=== PATIENT | female | born 1965 | race Caucasian/White ===

== ENCOUNTER 2022-01-25 23:58 | Inpatient (IN) | payer OTHER ==
[~2022-01-25] VITALS: Ht 165.1 cm; Wt 116.1 kg
--- NOTE | 2022-01-26 00:12 | NUR ---
Dr. Guzman at triage to exam patient.
[2022-01-26] MEDS ORDERED: ONDANSETRON 4 MG TAB PO ONE (00:25)
[2022-01-26 00:48] VITALS: BP 157/77
--- NOTE | 2022-01-26 02:17 | NUR ---
BS TAKEN 135, AWARE
[2022-01-26] MEDS ORDERED: METO-485 PO (02:27)
--- NOTE | 2022-01-26 02:44 | NUR ---
Patient had abdominal pain, refused to D/C, Dr. Guzman notified.
--- NOTE | 2022-01-26 02:49 | NUR ---
PATIENT TAKEN TO CT
[2022-01-26] MEDS ORDERED: MORPHINE SULFATE 4 MG/ML SYR IVP ONE (04:30)
--- NOTE | 2022-01-26 04:38 | NUR ---
Patient ambulated to bed 12.
[2022-01-26] MEDS ORDERED: NACL 0.9% 1,000 ML IV ONE (04:45)
[2022-01-26] MEDS ORDERED: PIPERACILLIN/TAZOBACTAM 3.375 GM in DEXTROSE 5% 50 ML IV ONE (04:45)
--- NOTE | 2022-01-26 04:55 | NUR ---
Blood for labwork drawn from right arm per weatherization and housing inspector. Patient tolerated well.
--- NOTE | 2022-01-26 05:04 | NUR ---
COVID-19 swabs collected and sent to lab.
[2022-01-26 05:09] LABS: BASOPHILS # (AUTO) 0.1 K/uL (0.00-0.22); BASOPHILS % (AUTO) 0.6 % (0.0-2.0); EOSINOPHILS % (AUTO) 0.1 % (0.0-4.0); HEMATOCRIT 31.2 % (36-48); HEMOGLOBIN 9.3 g/dL (12.0-16.0); LYMPHOCYTES # (AUTO) 1.5 K/uL (2.5-16.5); LYMPHOCYTES % (AUTO) 15.1 % (20.5-51.1); MEAN CORPUSCULAR HEMOGLOBIN 19 pg (27-31); MEAN CORPUSCULAR HGB CONC 30 g/dL (33-37); MEAN CORPUSCULAR VOLUME 62.8 fL (80-94); MONOCYTES # (AUTO) 0.2 K/uL (0.8-1.0); MONOCYTES % (AUTO) 2.5 % (1.7-9.3); NEUTROPHILS # (AUTO) 7.9 K/uL (1.8-7.7); NEUTROPHILS % (AUTO) 81.7 % (42.2-75.2); PLATELET COUNT (AUTO) 380 K/uL (140-450); RED BLOOD CELL COUNT(AUTO) 4.98 MIL/uL (4.20-5.40); RED CELL DISTRIBUTION WIDTH 21.1 % (11.6-13.7); WHITE BLOOD COUNT (AUTO) 9.7 K/uL (4.8-10.8)
--- NOTE | 2022-01-26 05:14 | NUR ---
Dr. Guzman at bedside and spoke with her family for treatment plans.
[2022-01-26] MEDS ORDERED: PIPERACILLIN/TAZOBACTAM 3.375 GM VIAL IV ONE (05:37)
[2022-01-26 05:54] LABS: ALBUMIN 3.4 g/dL (3.4-5.0); ANION GAP 15.3 (8-16); CARBON DIOXIDE 24.5 mmol/L (21-32); CREATININE 0.7 mg/dL (0.6-1.3); POTASSIUM 3.8 mmol/L (3.5-5.1); TOTAL BILIRUBIN 0.3 mg/dL (0.0-1.0)
--- NOTE | 2022-01-26 07:25 | NUR ---
report received from DEVORA Salas for transfer of care
--- NOTE | 2022-01-26 07:34 | NUR ---
Patient appears to be resting comfortably in bed. Vital Signs within normal limits. Respirations even and unlabored. PT PLACED IN GOWN AND PLACED ON BEDSIDE WATER SUPPLY ENGINEER. PT DENIES ANY PAIN
[2022-01-26] MEDS ORDERED: MAGNESIUM OXIDE 400 MG TAB PO PRN (08:35)
[2022-01-26] MEDS: NACL 0.9% 1,000 ML IV SCH ×2 (08:35→10:30)
[2022-01-26] MEDS ORDERED: ONDANSETRON 4 MG/2 ML VIAL IVP PRN (08:35)
[2022-01-26] MEDS ORDERED: ACETAMINOPHEN 325 MG TAB PO PRN (08:35)
[2022-01-26] MEDS ORDERED: MORPHINE SULFATE 4 MG/ML SYR IVP PRN (08:35)
[2022-01-26] MEDS ORDERED: bisacodyL 10 MG SUPP RC ONE (08:40)
[2022-01-26] MEDS ORDERED: DOCUSATE SOD/SENNA 50/8.6 MG 1 TAB PO PRN (08:40)
[2022-01-26] MEDS ORDERED: cefTRIAXone 1,000 MG VIAL ONE ×2 (08:43→08:45)
[2022-01-26] MEDS: ENOXAPARIN 40 MG/0.4 ML SYR SUBQ SCH (09:18)
--- NOTE | 2022-01-26 09:35 | NUR ---
RECEIVED REPORT FROM ER NURSE LUIS FERNANDO VIA PHONE CALL FOR CONTINUITY OF CARE.
--- NOTE | 2022-01-26 09:54 | NUR ---
Patient will be admitted to care of DR. WOLFF. Admited to MED-SURG. Will go to room 110A. Belongings list completed. Report to DEVORA SAENZ.
--- NOTE | 2022-01-26 09:55 | NUR ---
ER NURSE WHEELED PT TO UNIT. PT INDEPENDENTLY TRANSFERRED FROM WHEEL CHAIR TO BED. NO SIGNS OF DISTRESS NOTED. RESPIRATIONS EVEN AND UNLABORED ON ROOM AIR. A&O4. V/S STABLE COMPLAINT OF PAIN ON HER ABDOMEN 06/09. SKIN IS INTACT, WARM AND DRY TO TOUCH. IV ON RFA G22 RUNNING ROCEPHIN AT 100 ML/HR AT THIS TIME. PT RESTING IN BED. CALL LIGHT WITHIN REACH. SAFETY MEASURES IN PLACE. WILL CONTINUE TO MONITOR.
[2022-01-26] MEDS: HYDROcodone/APAP 5/325 MG 1 TAB TAB PO PRN ×2 (11:52→18:42)
--- NOTE | 2022-01-26 11:52 | NUR ---
PT COMPLAINT OF PAIN 03/09. PRN PAIN MEDS ADMINISTERED ORDERED.
[2022-01-26 12:16] VITALS: BP 110/71
--- NOTE | 2022-01-26 12:32 | NUR ---
DC PLANNING PATIENT IS A 56 YR OLD FEMALE WHO PRESENTED TO [facility]/ED ON 01/26/22 FOR ABDOMINAL PAIN. SW ATTEMPTED TO MEET WITH PATIENT AT BEDSIDE FOR THE PURPOSE OF DISCUSSING AND GATHERING COLLATERAL INFORMATION. PATIENT REQUESTED THAT I SPEAK WITH DAUGHTER, MARGARET. PATIENT PROVIDED SW WITH PHONE NUMBER [phone]. SW OUTREACHED TO PATIENTS DAUGHTER MARGARET WHO REPORTED THAT PATIENT RESIDES WITH HER SPOUSE AND DAUGHTER AT THE ADDRESS LISTED. MARGARET REPORTED PATIENTS SPOUSE, MCKAYLA KIDD, EMERGENCY CONTACT AND MEDICAL DECISION MAKER. SW INQUIRED ON A.D, MARGARET REPORTED THAT PATIENT DOES NOT HAVE AN AD IN PLACE. SW PROVIDED MARGARET WITH INFORMTION ON A.D., MARGARET WAS RECEPTIVE AND REQUESTED A.D PACKET BE LEFT AT PATIENTS BEDSIDE. MARGARET REPORTS THAT PATIENT IS INCONSISTENT WITH MEETING WITH PCP DR. CABRAL ([phone]) AND WAS UNABLE TO RECALL PATIENTS LAST VISIT. SW SPOKE TO MARGARET ON THE IMPORTANCE OF FOLLOW UP CARE ONCE DC. PATIENT WAS RECEPTIVE AND PROVIDED SW WITH PERMISSION TO MAKE FOLLOW UP APPT. MARGARET REPORTED THAT SHE WOULD ENSURE PATIENT FOLLOWS UP. MARGARET DENIED BARRIERS IN SEEKING MEDICATIONS AND REPORTS RECEIVING MEDICATIONS FROM [facility] [place], WHEN NEEDED. MARGARET REPORTS PATIENT IS PRIMARILY INDEPENDENT AND DOES NOT REQUIRE DAILY DME ASSISTANCE, HOWEVER, REPORTS THAT PATIENT WILL UTILIZE A WHEELCHAIR, WHEN NOT FEELING WELL. MARGARET REPORTS ADEQUATE FRIEND AND FAMILY SUPPORT AND REPORTS THAT SHE WILL BE PICKING PATIENT UP FROM HOSPITAL AND AIDING IN HER CARE, IF REQUIRED. SW INQUIRED ON ANY ADDITIONAL RESOURCES NEEDED. BORIS DECLINED AT THIS TIME.
[2022-01-26] MEDS: metroNIDAZOLE 500 MG/NS PREMIX 100 ML IV SCH ×2 (13:00→21:00)
--- NOTE | 2022-01-26 13:00 | NUR ---
RN ADMINISTERED FLAGYL ORDERED.
--- NOTE | 2022-01-26 14:52 | NUR ---
PATIENT HAS BEEN SCREENED AND CATEGORIZED HIGH NUTRITION RISK. PATIENT WILL BE SEEN WITHIN 1-2 DAYS OF ADMISSION. JAZMINE GAMEZ RD
--- NOTE | 2022-01-26 14:56 | NUR ---
PT IN BED, RESTING. BREATHING EVEN AND UNLABORED. INFORMED PT ABOUT STOOL COLLECTION ORDERED. PT VERBALIZED UNDERSTANDING. SAFETY MEASURES IN PLACE. CALL LIGHT WITHIN REACH.
--- NOTE | 2022-01-26 15:00 | NUR ---
DR MISHRA AT BEDSIDE WITH NURSE. EXPLAINED ABOUT COLONOSCOPY PROCEDURE TO BE DONE TOMORROW AND BOWEL PREPARATION NEEDED FOR THE PROCEDURE. VERBALIZED UNDERSTANDING AND CONSENT OBTAINED BY THE
[2022-01-26] MEDS: SUPREP BOWEL PREP KIT 354 ML SOLN.RECON PO SCH ×2 (15:57→21:00)
[2022-01-26] MEDS: bisacodyL 5 MG TABEC PO SCH ×2 (15:57→21:00)
[2022-01-26 16:00] VITALS: BP 120/68
--- NOTE | 2022-01-26 17:30 | NUR ---
PT ON BED, RESTING. BREATHING EVEN AND UNLABORED. NO SIGNS OF DISTRESS NOTED. DENIES PAIN AT THIS TIME. CALL LIGHT WITHIN REACH. SAFETY MEASURES IN PLACE.
--- NOTE | 2022-01-26 18:42 | NUR ---
PT COMPLAINT OF DE JESUS AND ABD PAIN 03/09. MEDICATED ORDERED.
[2022-01-26 20:00] VITALS: BP 112/62
[2022-01-26] MEDS ORDERED: SODIUM PHOSPHATE 118 ML ENEM RC SCH (22:00)
[2022-01-27] VITALS: BP 114/64
--- NOTE | 2022-01-27 00:15 | NUR ---
PATIENT AWAKE ALERT BERMUDIAN SPEAKING ONLY ON CLEAR LIQ. DIET TIL MID NITE THEN NPO FOR COLONOSCOPY IN A.M.PATIENT HAS DULCOLAX 3 TABS,BOWEL PREP, FLEETS ENEMA. NO C/O PATIENT HAS NS 80 HOUR. NPO POST MID NITE. TEMP 97.1
[2022-01-27] MEDS: NACL 0.9% 1,000 ML IV SCH ×2 (02:00→10:15)
[2022-01-27 04:00] VITALS: BP 116/64
[2022-01-27 04:13] LABS: PROTHROMBIN TIME 10.3 secs (10.8-13.4)
[2022-01-27] MEDS: metroNIDAZOLE 500 MG/NS PREMIX 100 ML IV SCH ×3 (05:40→21:00)
--- NOTE | 2022-01-27 05:59 | NUR ---
PT IS NOT CLEAR FOR COLONOSCOPY.CALLED DR MISHRA AND INFORM HIM.
--- NOTE | 2022-01-27 06:43 | NUR ---
CALLED AGAIN AND LEFT MESSAGE WITH CALL BACK NUMBER.
[2022-01-27 06:46] LABS: BASOPHILS % (AUTO) 0.5 % (0.0-2.0); EOSINOPHILS # (AUTO) 0.1 K/uL (0-0.4); HEMATOCRIT 29.3 % (36-48); HEMOGLOBIN 8.7 g/dL (12.0-16.0); LYMPHOCYTES # (AUTO) 2.6 K/uL (2.5-16.5); LYMPHOCYTES % (AUTO) 30.2 % (20.5-51.1); MEAN CORPUSCULAR HEMOGLOBIN 19 pg (27-31); MEAN CORPUSCULAR HGB CONC 30 g/dL (33-37); MEAN CORPUSCULAR VOLUME 63.2 fL (80-94); MONOCYTES # (AUTO) 0.6 K/uL (0.8-1.0); MONOCYTES % (AUTO) 6.9 % (1.7-9.3); NEUTROPHILS # (AUTO) 5.2 K/uL (1.8-7.7); NEUTROPHILS % (AUTO) 61.4 % (42.2-75.2); PLATELET COUNT (AUTO) 370 K/uL (140-450); RED BLOOD CELL COUNT(AUTO) 4.63 MIL/uL (4.20-5.40); RED CELL DISTRIBUTION WIDTH 20.8 % (11.6-13.7); WHITE BLOOD COUNT (AUTO) 8.5 K/uL (4.8-10.8)
[2022-01-27 06:53] LABS: ALBUMIN 3.1 g/dL (3.4-5.0); ANION GAP 10.6 (8-16); CARBON DIOXIDE 27.7 mmol/L (21-32); CREATININE 0.8 mg/dL (0.6-1.3); POTASSIUM 3.3 mmol/L (3.5-5.1); TOTAL BILIRUBIN 0.3 mg/dL (0.0-1.0)
--- NOTE | 2022-01-27 07:25 | NUR ---
RECEIVED REPORT FROM WELL LOGGING CAPTAIN MUD ANALYSIS NURSE FOR CONTINUITY OF CARE. PT ASLEEP IN BED. BREATHING SYMMETRICAL ON ROOM AIR. WITH RFA 20G NS AT 80CC/HR. FLACC O. CALL LIGHT WITHIN REACH. ALL SAFETY MEASURES IN PLACE. PER REPORT DR REYEZ WAS PAGED, PT NOT CLEARED FOR COLONOSCOPY AT THIS TIME, AWAITING RESPONSE FROM .
[2022-01-27 08:00] VITALS: BP 134/53
[2022-01-27] MEDS: ENOXAPARIN 40 MG/0.4 ML SYR SUBQ SCH (08:42)
--- NOTE | 2022-01-27 08:42 | NUR ---
SCHEDULED ROCEPHIN GIVEN ORDERED. LOVENOX NOT GIVEN, PT FOR COLONOSCOPY TODAY
--- NOTE | 2022-01-27 09:20 | NUR ---
PT TAKEN TO OR, IN STABLE CONDITION
[2022-01-27] MEDS: MIDAZOLAM 2 MG/2 ML VIAL IVP ONE ×2 (09:33→10:16)
[2022-01-27] MEDS: fentaNYL citrate 0.05 MG/ML VIAL IVP ONE ×2 (09:34→10:16)
[2022-01-27] MEDS ORDERED: fentaNYL citrate 0.05 MG/ML VIAL ONE (09:36)
[2022-01-27] MEDS ORDERED: diphenhydrAMINE 50 MG/ML VIAL ONE (09:36)
[2022-01-27] MEDS ORDERED: MIDAZOLAM 5 MG/5 ML VIAL ONE (09:36)
--- NOTE | 2022-01-27 10:11 | NUR ---
(01/27/22) RD INITIAL ASSESSMENT COMPLETED PLEASE REFER TO NUTRITION ASSESSMENT UNDER CARE ACTIVITY FOR ESTIMATED NUTRITIONAL NEEDS. RD RECOMMENDATIONS: 1. CONTINUE NPO MEDICALLY APPROPRIATE. 2. IF/WHEN MEDICALLY APPROPRIATE, CONSIDER INITIATING CLEAR LIQUID, ADVANCING TO FULL LIQUID, AND THEN REGULAR DIET TOLERATED. 3. CONSULT RDN PRN. 4. RD WILL F/U 2-3 DAYS; HIGH RISK. MITCHELL ALLEN, , RDN
--- NOTE | 2022-01-27 10:14 | NUR ---
PT BACK FROM OR S/P COLONOSCOPY, IN STABLE CONDITION. AWAKE, ALERT. BREATHING SYMMETRICAL ON ROOM AIR. [id number] RR16 TEMP98.1 O2 SAT ON ROOM AIR 94%
--- NOTE | 2022-01-27 10:20 | NUR ---
URINE SPECIMEN COLLECTED AND SENT TO LAB
[2022-01-27 10:28] LABS: APPEARANCE,URINE CLEAR (CLEAR); BILIRUBIN,URINE 1+ (NEGATIVE); BLOOD, URINE NEGATIVE (NEGATIVE); COLOR,URINE YELLOW (YELLOW); LEUKOCYTE ESTERASE ,URINE TRACE (NEGATIVE); NITRITE, URINE NEGATIVE (NEGATIVE); PH,URINE 5.5 (5.0-9.0); UGLUCOSE NEGATIVE (NEGATIVE)
[2022-01-27 10:52] LABS: CALCIUM OXALATE CRYSTALS,UR None Seen /HPF (None Seen); COARSE GRANULAR CASTS,URINE None Seen /LPF (None Seen); FINE GRANULAR CASTS,URINE None Seen /LPF (None Seen); HYALINE CASTS, URINE None Seen /LPF (None Seen); OTHER CASTS, URINE None Seen /LPF (None Seen); OTHER CRYSTALS,URINE None Seen /HPF (None Seen); RBC,URINE NONE SEEN /HPF (0-5); RED BLOOD CELL CASTS,URINE None Seen /LPF (None Seen); TRICHOMONAS,URINE None Seen /HPF (None Seen); TRIPLE PHOSPHATE CRYSTAL,UR None Seen /HPF (None Seen); URIC ACID CRYSTALS,URINE None Seen /HPF (None Seen); URINE AMORPHOUS URATE None Seen /HPF (None Seen); WAXY CASTS,URINE None Seen /LPF (None Seen); WBC,URINE 0-5 /HPF (0-5); YEAST,URINE None Seen /HPF (None Seen)
[2022-01-27] MEDS: POTASSIUM CHLORIDE 10 MEQ TABER PO PRN (12:26)
--- NOTE | 2022-01-27 12:31 | NUR ---
PT AWAKE/ALERT IN BED, DAUGHTER AT BEDSIDE VISITING. BREATHING SYMMETRICAL ON ROOM AIR. NO C/O NAUSEA/VOMITING AT THIS TIME. ON CLEAR LIQUID DIET AND TOLERATING WELL AT THIS TIME. PRN K LEVEL GIVEN FOR K LEVEL 3.3 CALL LIGHT WITHIN REACH. ALL SAFETY MEASURES IN PLACE.
[2022-01-27 16:00] VITALS: BP 113/64
--- NOTE | 2022-01-27 16:30 | NUR ---
PT AWAKE IN BED. BREATHING SYMMETRICAL ON ROOM AIR. DAUGHTER AT BEDSIDE, NO C/O PAIN AT THIS TIME.
--- NOTE | 2022-01-27 17:57 | NUR ---
DR TERAN MADE AWARE OF CONSULT
--- NOTE | 2022-01-27 19:29 | NUR ---
ENDORSED PT TO BEAD FILLER NURSE, IN STABLE CONDITION
--- NOTE | 2022-01-27 22:43 | NUR ---
PATIENT AWAKE ALERT NO C/O OF DISCOMFORT PATIENT IS A MED/SURG PATIENT HAS NS INFUSING AT 80 HOUR LUNG CLEAR TEMP 98.3 SAT 98%, NO SIGNS OF DISTRESS.
[2022-01-28] VITALS: BP 128/69
[2022-01-28] MEDS: metroNIDAZOLE 500 MG/NS PREMIX 100 ML IV SCH ×3 (04:55→20:17)
[2022-01-28 07:26] LABS: BASOPHILS % (AUTO) 0.7 % (0.0-2.0); EOSINOPHILS # (AUTO) 0.1 K/uL (0-0.4); EOSINOPHILS % (AUTO) 1.1 % (0.0-4.0); HEMATOCRIT 24.9 % (36-48); HEMOGLOBIN 7.5 g/dL (12.0-16.0); LYMPHOCYTES # (AUTO) 2.9 K/uL (2.5-16.5); LYMPHOCYTES % (AUTO) 49.1 % (20.5-51.1); MEAN CORPUSCULAR HEMOGLOBIN 19 pg (27-31); MEAN CORPUSCULAR HGB CONC 30 g/dL (33-37); MEAN CORPUSCULAR VOLUME 63.6 fL (80-94); MONOCYTES # (AUTO) 0.5 K/uL (0.8-1.0); MONOCYTES % (AUTO) 8.1 % (1.7-9.3); NEUTROPHILS # (AUTO) 2.5 K/uL (1.8-7.7); PLATELET COUNT (AUTO) 313 K/uL (140-450); RED BLOOD CELL COUNT(AUTO) 3.91 MIL/uL (4.20-5.40)
--- NOTE | 2022-01-28 07:30 | NUR ---
RECEIVED REPORT FROM RECYCLABLE MATERIALS DISTRIBUTOR NURSE FOR CONTINUITY OF CARE. PT AWAKE IN BED, ALERT. BREATHING SYMMETRICAL ON ROOM AIR. NO C/O PAIN AT THIS TIME. RFA 22G WITH NS AT 80CC/HR. CALL LIGHT WITHIN REACH. ALL SAFETY MEASURES IN PLACE. DR TERAN (SURGEON) AT BEDSIDE TALKING TO PT REGARDING COLONIC MASS, POSSIBLE SURGERY.
[2022-01-28 07:33] LABS: ALBUMIN 2.6 g/dL (3.4-5.0); ANION GAP 11.2 (8-16); CARBON DIOXIDE 25.3 mmol/L (21-32); CREATININE 0.8 mg/dL (0.6-1.3); POTASSIUM 3.5 mmol/L (3.5-5.1); TOTAL BILIRUBIN 0.2 mg/dL (0.0-1.0)
[2022-01-28] MEDS: DEXT 5% / NACL 0.45% 1,000 ML IV SCH ×2 (07:55→21:15)
--- NOTE | 2022-01-28 07:55 | NUR ---
DR TERAN DISCUSSED WITH PT REGARDING SURGERY. PT AGREED AND CONSENTED TO SURGERY (LAPAROSCOPIC PARTIAL COLECTOMY POSSIBLE OPEN) PT AND DR TERAN SIGNED CONSENT FOR SURGERY. WITH NEW ORDERS MADE, ALSO ORDERED TO D/C NS AT 80CC, START D51/2NS AT 75CC/HR.
[2022-01-28 08:00] VITALS: BP 143/53
--- NOTE | 2022-01-28 08:15 | NUR ---
SCHEDULED AM MEDICATIONS GIVEN ORDERED. DENIES PAIN AT THIS TIME. PT SEEN BY DR WOLFF
[2022-01-28] MEDS: ENOXAPARIN 40 MG/0.4 ML SYR SUBQ SCH (08:28)
--- NOTE | 2022-01-28 12:04 | NUR ---
PT AWAKE IN BED. BREATHING SYMMETRICAL ON ROOM AIR. ABLE TO AMBULATE WITH STEADY GAIT. DAUGHTER AT BEDSIDE VISITING. DENIES PAIN AT THIS TIME. CALL LIGHT WITHIN REACH.
--- NOTE | 2022-01-28 13:30 | NUR ---
RECEIVED CALL FROM LAB, 2 UNITS PRBC READY AND ON HOLD FOR SURGERY.
--- NOTE | 2022-01-28 14:21 | NUR ---
PT IN BED AWAKE, ALERT, URDU SPEAKING. BREATHING SYMMETRICAL ON ROOM AIR. PT'S SON AT BEDSIDE VISITING. PT DENIES PAIN, NO NAUSEA/VOMITING NOTED. ENCOURAGED TO USE CALL LIGHT WHEN ASSISTANCE IS NEEDED.
[2022-01-28 16:00] VITALS: BP 132/70
--- NOTE | 2022-01-28 17:15 | NUR ---
AT BEDSIDE VISITING PT, PT STATES SHE'S FINE, DENIES PAIN. ENCOURAGED TO CALL FOR ASSISTANCE. BREATHING SYMMETRICAL ON ROOM AIR. REMINDED PT OF NPO EXCEPT MEDS STATUS FOR TOMORROW.
--- NOTE | 2022-01-28 19:19 | NUR ---
ENDORSED PT TO PATIENT SERVICES REPRESENTATIVE NURSE, IN STABLE CONDITION.
--- NOTE | 2022-01-28 19:30 | NUR ---
RECEIVED BEDSIDE REPORT FROM DAY SHIFT RN FOR CONTINUITY OF CARE. PT IS WAKE IN BED ON RA. PT IS NOT IN ANY ACUTE DISTRESS. BREATHING EVEN AND UNLABORED. IVF RUNNING PER MD ORDER. CALL LIGHT WITHIN REACH. ALL SAFETY MEASURES TAKEN. WILL CONTINUE TO MONITOR THE PT.
[2022-01-28 20:00] VITALS: BP 132/73
--- NOTE | 2022-01-28 20:15 | NUR ---
ALL DUE MEDS GIVEN. NO ADVERSE REACTION NOTED. WILL CONTINUE TO MONITOR THE PT.
[2022-01-29] MEDS: DEXT 5% / NACL 0.45% 1,000 ML IV SCH ×2 (01:15→21:05)
--- NOTE | 2022-01-29 01:23 | NUR ---
PT IS SLEEPING IN BED COMFORTABLY. PT IS NOT IN ANY ACUTE DISTRESS. BREATHING EVEN AND UNLABORED. IVF RUNNING PER MD ORDER. CALL LIGHT WITHIN REACH. ALL SAFETY MEASURES TAKEN. WILL CONTINUE TO MONITOR THE PT.
[2022-01-29 04:00] VITALS: BP 107/48
[2022-01-29] MEDS: metroNIDAZOLE 500 MG/NS PREMIX 100 ML IV SCH ×3 (05:04→21:20)
--- NOTE | 2022-01-29 05:10 | NUR ---
ALL DUE MEDS GIVEN. NO ADVERSE REACTION NOTED. WILL CONTINUE TO MONITOR THE PT.
[2022-01-29 06:34] LABS: BASOPHILS # (AUTO) 0.1 K/uL (0.00-0.22); EOSINOPHILS # (AUTO) 0.1 K/uL (0-0.4); EOSINOPHILS % (AUTO) 1.3 % (0.0-4.0); HEMATOCRIT 25.6 % (36-48); HEMOGLOBIN 7.7 g/dL (12.0-16.0); LYMPHOCYTES % (AUTO) 44.3 % (20.5-51.1); MEAN CORPUSCULAR HEMOGLOBIN 19 pg (27-31); MEAN CORPUSCULAR HGB CONC 30 g/dL (33-37); MEAN CORPUSCULAR VOLUME 63.2 fL (80-94); MONOCYTES # (AUTO) 0.7 K/uL (0.8-1.0); MONOCYTES % (AUTO) 10.5 % (1.7-9.3); NEUTROPHILS # (AUTO) 2.9 K/uL (1.8-7.7); NEUTROPHILS % (AUTO) 42.9 % (42.2-75.2); PLATELET COUNT (AUTO) 316 K/uL (140-450); RED BLOOD CELL COUNT(AUTO) 4.05 MIL/uL (4.20-5.40); RED CELL DISTRIBUTION WIDTH 20.7 % (11.6-13.7); WHITE BLOOD COUNT (AUTO) 6.8 K/uL (4.8-10.8)
[2022-01-29 06:50] LABS: ALBUMIN 2.7 g/dL (3.4-5.0); CARBON DIOXIDE 24.2 mmol/L (21-32); CREATININE 0.7 mg/dL (0.6-1.3); POTASSIUM 3.2 mmol/L (3.5-5.1); TOTAL BILIRUBIN 0.2 mg/dL (0.0-1.0)
--- NOTE | 2022-01-29 07:46 | NUR ---
ENDORSED PT TO DAY SHIFT RN FOR CONTINUITY OF CARE. ALL NEEDS MET. PT IS STABLE.
[2022-01-29 08:00] VITALS: BP 123/62
--- NOTE | 2022-01-29 08:53 | NUR ---
PATIENT TO OR IN STABLE CONDITION AND REPORT GIVEN TO CELENA LOZOYA. ROCEPHIN GIVEN PRE OP MEDS OF PATIENT TO CELENA,
[2022-01-29] MEDS ORDERED: HYDROmorphone PFS 2 MG/ML SYR ONE (09:12)
[2022-01-29] MEDS ORDERED: MIDAZOLAM 2 MG/2 ML VIAL ONE (09:12)
[2022-01-29] MEDS ORDERED: METOCLOPRAMIDE 10 MG/2 ML INJ VIAL ONE (09:27)
[2022-01-29] MEDS ORDERED: ONDANSETRON 4 MG/2 ML VIAL ONE (09:27)
[2022-01-29] MEDS ORDERED: PROPOFOL 200 MG/20 ML VIAL IV ONE (09:27)
[2022-01-29] MEDS ORDERED: DEXAMETHASONE 4 MG/ML VIAL ONE (09:28)
[2022-01-29] MEDS ORDERED: GLYCOPYRROLATE 0.2 MG/ML VIAL ONE ×2 (09:29)
[2022-01-29] MEDS ORDERED: NEOSTIGMINE 1:1000 10 MG/10 ML VIAL ONE (09:29)
[2022-01-29] MEDS ORDERED: ROCURONIUM 50 MG/5 ML VIAL IV ONE (09:33)
[2022-01-29] MEDS ORDERED: SEVOFLURANE 250 ML BTL INH ONE (09:52)
[2022-01-29] MEDS ORDERED: ePHEDrine 50 MG/ML VIAL ONE (09:52)
[2022-01-29] MEDS ORDERED: BUPIVACAINE-MPF 0.25% 30 ML VIAL INJ ONE (10:05)
[2022-01-29] MEDS ORDERED: LIDOCAINE/EPI MPF 1%1:200000 30 ML VIAL INJ ONE (10:05)
[2022-01-29] MEDS ORDERED: HYDROmorphone 1 MG/ML AMP IVP PRN ×2 (13:15)
[2022-01-29] MEDS ORDERED: ONDANSETRON 4 MG/2 ML VIAL IVP PRN (13:15)
[2022-01-29] MEDS ORDERED: MEPERIDINE 25 MG/ML SYR IVP PRN (13:15)
[2022-01-29] MEDS ORDERED: LACTATED RINGERS 1,000 ML IV SCH (13:15)
--- NOTE | 2022-01-29 13:48 | NUR ---
DC PLANNING: THE PATIENT PRESENTED TO THE ED WITH C/O RLQ ABDOMINAL PAIN X 1 WEEK. W/U IN ED INCLUDED CT OF ABDOMEN WHICH SHOWED COLITIS, CONSTIPATION AND POSSIBLE OBSTRUCTION/SBO. PATIENT HAD A COLONOSCOPY WTIH BX AND SNARE POLYPECTOMY ON 01/28, GI MD RECOMMENDED A SURGICAL CONSULT BASED ON FINDINGS OF OF CIRCUMFERENTIAL FUNGATING ULCERATIVE OBSTRUCTIVE MASS IN THE PROXIMAL ASCENDING COLON. PATIENT TO OR TODAY FOR COLECTOMY, LAP VS OPEN. DC PLAN DEPENDS ON PATIENT RESPONSE TO SURGERY AND NEEDS, PER SS NOTES PATIENT LIVES WITH HER SPOUSE AND HAS ADDITIONAL SUPPORT FROM HER DAUGHTER SELVIN. CM WILL FOLLOW. Addendum: 01/30/22 at 1234 by Kira Castillo CM DC PLANNING: CM SPOKE WITH THE PATIENT AND HER AT BEDSIDE AND CONFIRMED THE ADDRESS AND PHONE NUMBER. THE PATIENT LIVES IN A SINGLE STORY HOUSE WITH HER DAUGHTER AND IS INDEPENDENT IN ALL ACTIVITIES. SHE HAS A WC WHICH SHE DOESN'T USE AND HAS NO OTHER DME OR H/O HOME HEALTH. SHE HAS A PCP IN [place] THAT SHE SEES REGULARLY BUT COULD NOT REMEMBER THEIR NAME. HER IS ABLE TO GIVE HER A RIDE HOME WHEN SHE'S STABLE FOR DISCHARGE, NO DC NEEDS IDENTIFIED. CM WILL FOLLOW. Addendum: 02/02/22 at 0926 by Kira Castillo CM DC PLANNING: ORDER FOR HOME HEALTH FOR NURSING OVERSIGHT POST DISCHARGE, ORDER AND CLINICAL PACKET FAXED TO [facility], ALSO SPOKE WITH NAZARIO AT [facility] TO MAKE HER AWARE. CAROL WILL REFER PATIENT TO A CONTRACTED HOME HEALTH AGENCY DIRECTED BY [facility]. CM WILL FOLLOW. Addendum: 02/02/22 at 1223 by Kira Castillo CM DC PLANNING: THE PATIENT IS ACCEPTED ON SERVICE WITH [facility], PHONE NUMBER [phone], START OF CARE TOMORROW WITH AN EVALUATION BY AN RN. CM WILL FOLLOW.
[2022-01-29 14:30] VITALS: BP 116/60
[2022-01-29 14:45] VITALS: BP 119/61
[2022-01-29 15:00] VITALS: BP 118/65
--- NOTE | 2022-01-29 15:02 | NUR ---
1430 patient back from surgery per bed with midline incion and 3 lap site inct with dressing and hermelindo bulb compressed and draining serosanguinous drainage. kept comfortable in bed.iv infusing well and intact.
[2022-01-29] MEDS: ACETAMINOPHEN EXTRA STRENGTH 500 MG TAB PO SCH ×2 (16:20→21:48)
[2022-01-29] MEDS: GABAPENTIN 300 MG CAP PO SCH (16:20)
--- NOTE | 2022-01-29 19:06 | NUR ---
1900 INSTRUCTED INCENTIVE SPIROMETER TO PATIENT. PATIENTS FAMILY MEMBER AT BEDSIDE. FAMILY MEMBER EXPLAINED TO PATIENT IN OCCITAN HOW TO USE INCENTIVE SPIROMETER. FAMILY DID 2000CC X 10 BREATHS. PATIENT DID WELL.
[2022-01-29 20:00] VITALS: BP 108/48
[2022-01-29] MEDS: KETOROLAC 15 MG/ML VIAL IVP SCH (21:47)
[2022-01-30] VITALS: BP 109/50
[2022-01-30 04:00] VITALS: BP_SYST 109; BP_SYST 52; BP_DIAS 50
[2022-01-30] MEDS: HYDROcodone/APAP 5/325 MG 1 TAB TAB PO PRN (04:40)
[2022-01-30] MEDS: metroNIDAZOLE 500 MG/NS PREMIX 100 ML IV SCH ×3 (05:53→21:40)
[2022-01-30] MEDS: KETOROLAC 15 MG/ML VIAL IVP SCH ×3 (05:54→21:43)
[2022-01-30 06:52] LABS: ALBUMIN 2.5 g/dL (3.4-5.0); ANION GAP 10.6 (8-16); CARBON DIOXIDE 26.5 mmol/L (21-32); CREATININE 0.8 mg/dL (0.6-1.3); POTASSIUM 3.1 mmol/L (3.5-5.1); TOTAL BILIRUBIN 0.3 mg/dL (0.0-1.0)
[2022-01-30 06:54] LABS: BASOPHILS % (AUTO) 0.5 % (0.0-2.0); EOSINOPHILS % (AUTO) 0.1 % (0.0-4.0); HEMATOCRIT 25.3 % (36-48); HEMOGLOBIN 7.6 g/dL (12.0-16.0); LYMPHOCYTES # (AUTO) 1.8 K/uL (2.5-16.5); LYMPHOCYTES % (AUTO) 18.7 % (20.5-51.1); MEAN CORPUSCULAR HEMOGLOBIN 19 pg (27-31); MEAN CORPUSCULAR HGB CONC 30 g/dL (33-37); MEAN CORPUSCULAR VOLUME 63.1 fL (80-94); MONOCYTES # (AUTO) 0.8 K/uL (0.8-1.0); MONOCYTES % (AUTO) 8.2 % (1.7-9.3); NEUTROPHILS # (AUTO) 6.9 K/uL (1.8-7.7); NEUTROPHILS % (AUTO) 72.5 % (42.2-75.2); PLATELET COUNT (AUTO) 320 K/uL (140-450); RED BLOOD CELL COUNT(AUTO) 4.01 MIL/uL (4.20-5.40); RED CELL DISTRIBUTION WIDTH 20.8 % (11.6-13.7); WHITE BLOOD COUNT (AUTO) 9.5 K/uL (4.8-10.8)
[2022-01-30 08:35] VITALS: BP 98/46
[2022-01-30] MEDS: POTASSIUM CHLORIDE 10 MEQ TABER PO PRN (09:40)
[2022-01-30] MEDS: ACETAMINOPHEN EXTRA STRENGTH 500 MG TAB PO SCH ×4 (09:40→21:45)
[2022-01-30] MEDS: GABAPENTIN 300 MG CAP PO SCH ×3 (09:40→16:48)
[2022-01-30] MEDS: ENOXAPARIN 40 MG/0.4 ML SYR SUBQ SCH (09:43)
--- NOTE | 2022-01-30 10:35 | NUR ---
RECEIVED ENDORSEMENT REPORT FROM ICU NURSE LINDA VIA PHONE. Addendum: 01/30/22 at 1211 by Shameka Helton LVN WRONG ENTRY.
--- NOTE | 2022-01-30 10:45 | NUR ---
ICU NURSE WHEELED THE PT FROM ICU. PT ON STABLE CONDITION. A&04. ABLE TO RESPOND VERBALLY. RESPIRATIONS EVEN, WITH NOTED WHEEZING ON NC 2L SATING AT 97%. V/S UPON TRANSFER 98.5F, 127/59, 72, 20. PT ON HEAD CLEANING PORTER. SKIN IS WARM, DRY, INTACT. IV SITE AT LFA G22 AND RFA G20, BOTH ON SALINE LOCK. ORIENTED PT TO ROOM, ENVIRONMENT, UNIT AND ROUTINE. CALL LIGHT WITHIN REACH. SAFETY MEASURES IN PLACE. WILL CONTINUE TO MONITOR. Addendum: 01/30/22 at 1209 by Shameka Helton LVN WRONG ENTRY.
--- NOTE | 2022-01-30 11:31 | NUR ---
RECEIVE CALL FROM PHARMACY THAT PATIENT'S IV ROCEPHIN IS COMPLETE AFTER MORNING DOSE. DR. WOLFF INFORMED AND RECEIVE INSTRUCT THAT "DR GOMEZ IS THERE THIS WEEK BUT PROBABLY CAN LET IT FALL OFF." Addendum: 01/30/22 at 1138 by Bing Henry RN "PROBABLY OK TO LET IT FALL OFF WELL."
--- NOTE | 2022-01-30 12:28 | NUR ---
REMOVED 70 ML DRAINAGE FROM GLORIA BAG.
--- NOTE | 2022-01-30 13:20 | NUR ---
01/30/22 RD FOLLOW UP COMPLETED PLEASE REFER TO NUTRITION ASSESSMENT UNDER CARE ACTIVITY FOR ESTIMATED NUTRITIONAL NEEDS. 1. CONTINUE CLEAR LIQUID DIET TOLERATED 2. RECOMMEND ENSURE CLEAR TID PER RD PROTOCOL 3. WHEN/IF MEDICALLY APPROPRIATE, ADVANCE TO REGULAR DIET 4. RD WILL F/U 3-5 DAYS; MODERATE RISK. JAZMINE GAMEZ RD
[2022-01-30] MEDS: DEXT 5% / NACL 0.45% 1,000 ML IV SCH (13:28)
[2022-01-30 16:00] VITALS: BP 118/57
--- NOTE | 2022-01-30 17:54 | NUR ---
DR. TERAN IS HERE AND INSTRUCT PATIENT AND NURSE THAT PATIENT IS OKAY TO GET OUT BED NOW AND ENCOURAGE PATIENT TO HAVE ABOUT 3 OR 4 LAPS WALKING AROUND UNIT DAILY. Addendum: 01/30/22 at 1804 by Bing Henry RN REPEAT CBC & BMP W/ BATHROOM PRIVILEGES
--- NOTE | 2022-01-30 19:19 | NUR ---
ENDORSE PT TO PM SHIFT NURSE W/ STABLE CONDITION, PIV R. FOREARM PATENT W/ D51/2 NS @75ML/HR INFUSING. JUST EMPTY GLORIA BEFORE SHIFT OVER WITH TOTAL 180CM DRAINAGE.
--- NOTE | 2022-01-30 19:20 | NUR ---
RECEIVED ENDORSEMENT FROM DAY SHIFT NURSE FOR CONTINUITY OF CARE.
--- NOTE | 2022-01-30 22:00 | NUR ---
PATIENT IS ON STABLE CONDITION, DENIES OF PAIN OR DISCOMFORT. NIGHT MEDICATIONS ADMINISTERED ORDERED. SAFETY MEASURES IN PLACE. CALL LIGHT WITHIN REACH.
[2022-01-31 00:59] VITALS: BP 115/56
[2022-01-31] MEDS: DEXT 5% / NACL 0.45% 1,000 ML IV SCH (03:36)
[2022-01-31 04:00] VITALS: BP 116/54
[2022-01-31] MEDS: metroNIDAZOLE 500 MG/NS PREMIX 100 ML IV SCH ×3 (05:39→21:13)
[2022-01-31] MEDS: KETOROLAC 15 MG/ML VIAL IVP SCH ×3 (05:41→21:13)
[2022-01-31 07:15] LABS: ALBUMIN 2.3 g/dL (3.4-5.0); ANION GAP 9.5 (8-16); BASOPHILS # (AUTO) 0.1 K/uL (0.00-0.22); BASOPHILS % (AUTO) 0.7 % (0.0-2.0); CARBON DIOXIDE 26.8 mmol/L (21-32); CREATININE 0.8 mg/dL (0.6-1.3); EOSINOPHILS # (AUTO) 0.2 K/uL (0-0.4); EOSINOPHILS % (AUTO) 2.4 % (0.0-4.0); HEMATOCRIT 24.6 % (36-48); HEMOGLOBIN 7.3 g/dL (12.0-16.0); LYMPHOCYTES # (AUTO) 2.3 K/uL (2.5-16.5); LYMPHOCYTES % (AUTO) 30.8 % (20.5-51.1); MEAN CORPUSCULAR HEMOGLOBIN 19 pg (27-31); MEAN CORPUSCULAR HGB CONC 30 g/dL (33-37); MEAN CORPUSCULAR VOLUME 63.2 fL (80-94); MONOCYTES # (AUTO) 0.6 K/uL (0.8-1.0); MONOCYTES % (AUTO) 7.7 % (1.7-9.3); NEUTROPHILS # (AUTO) 4.3 K/uL (1.8-7.7); NEUTROPHILS % (AUTO) 58.4 % (42.2-75.2); PLATELET COUNT (AUTO) 289 K/uL (140-450); POTASSIUM 3.3 mmol/L (3.5-5.1); RED BLOOD CELL COUNT(AUTO) 3.89 MIL/uL (4.20-5.40); TOTAL BILIRUBIN 0.1 mg/dL (0.0-1.0); WHITE BLOOD COUNT (AUTO) 7.4 K/uL (4.8-10.8)
--- NOTE | 2022-01-31 07:20 | NUR ---
RECEIVED REPORT FROM RECOVERER NURSE FOR CONTINUITY OF CARE. PT AWAKE IN BED, ALERT, CHINESE SPEAKING. BREATHING SYMMETRICAL ON ROOM AIR. S/P LAPAROSCOPIC PARTIAL COLECTOMY ON 01/29 WITH GLORIA DRAIN ON MID LOWER ABDOMEN DRAINING MINIMAL SANGUINOUS OUTPUT. ALSO NOTED WITH SURGICAL INCISIONS ON ABDOMEN WITH DERMABOND, NO ACTIVE BLEEDING NOTED. RAC 22G WITH D5 1/2NS AT 75CC/HR. CALL LIGHT WITHIN REACH. ALL SAFETY MEASURES IN PLACE.
--- NOTE | 2022-01-31 07:25 | NUR ---
PATIENT IS STABLE AND ABLE TO VERBALIZED NEEDS. IV SITE ON RIGHT AC INTACT AND PATENT. IVF INFUSING WELL. ENDORSED TO DAY SHIFT NURSE FOR PATIENT CONTINUITY OF CARE.
[2022-01-31] MEDS: ACETAMINOPHEN EXTRA STRENGTH 500 MG TAB PO SCH ×4 (07:59→21:09)
[2022-01-31 08:00] VITALS: BP 107/56
[2022-01-31] MEDS: GABAPENTIN 300 MG CAP PO SCH ×3 (08:19→17:28)
[2022-01-31] MEDS: POTASSIUM CHLORIDE 10 MEQ TABER PO PRN (08:19)
--- NOTE | 2022-01-31 08:19 | NUR ---
SCHEDULED AM MEDICATIONS GIVEN ORDERED. PRN K GIVEN FOR K LEVEL 3.3
[2022-01-31] MEDS: ENOXAPARIN 40 MG/0.4 ML SYR SUBQ SCH (08:24)
--- NOTE | 2022-01-31 09:59 | NUR ---
RECEIVED VERBAL ORDER FROM ANNALISE MONSIVAIS FOR DR TERAN TO DC IVF AND PUT ON SALINE LOCK.
--- NOTE | 2022-01-31 10:30 | NUR ---
PT AMBULATED TO THE RESTROOM, DAUGHTER AT BEDSIDE. ENCOURAGED PT TO GET OUT OF BED TOLERATED. DENIES PAIN AT THIS TIME
--- NOTE | 2022-01-31 12:40 | NUR ---
AT BEDSIDE VISITING. EMPTIED GLORIA DRAIN WITH 50CC, SANGUINOUS OUTPUT. DENIES PAIN AT THIS TIME. WILL CONTINUE TO MONITOR.
--- NOTE | 2022-01-31 14:43 | NUR ---
NOTED RAC IV LINE INFILTRATED, ALSO C/O PAIN WHEN FLUSHING. INSERTED IV LINE ON RIGHT HAND 22G, NO S/SX OF INFILTRATION NOTED.
[2022-01-31 16:00] VITALS: BP 110/55
--- NOTE | 2022-01-31 17:51 | NUR ---
PT AWAKE, ALERT, ABLE TO MAKE NEEDS KNOWN. BREATHING SYMMETRICAL ON ROOM AIR. DAUGHTER AT BEDSIDE. CHANGED DRESSING ON GLORIA DRAIN IT'S SOAKED WITH SEROSANGUINOUS DRAINAGE. PT DENIES PAIN DURING CHANGE. 80CC OUTPUT FROM GLORIA DRAIN FOR THIS SHIFT.
--- NOTE | 2022-01-31 19:46 | NUR ---
ENDORSED PT TO BATTER MIXER NURSE, IN STABLE CONDITION
--- NOTE | 2022-01-31 19:47 | NUR ---
RECD. RESTING IN BED, AWAKE, A/OX4. RESPIRATION EVEN AND UNLABORED. IV OF D5 0.45% NS INFUSING AT 75ML/HR. RIGHT HAND G22. SURGICAL INCISION IN THE ABDOMEN (4) WITH DEVON, OPEN TO AIR, ALL DRY AND INTACT DRAINING SEROSANGUINEOUS FLUID MODERATE AMOUNT. VERBALIZED SHE HAS LIQUID BM. TOLERATING SOFT DIET. DENIES PAIN 0/10.
--- NOTE | 2022-01-31 20:00 | NUR ---
REVIEWED PLAN OF CARE WITH KVNG GUTIERREZ LVN.
--- NOTE | 2022-01-31 21:09 | NUR ---
SCHEDULED MEDICATION FOR THE NIGHT ADMINISTERED,TOLERATED WELL.
[2022-02-01] VITALS: BP 116/59
--- NOTE | 2022-02-01 | NUR ---
INQUIRED IF SHE NEEDS PAIN MEDICATION, VERBALIZED SHE IS DOES NOT HAVE PAIN 0/10.
--- NOTE | 2022-02-01 03:00 | NUR ---
AMBULATED TO THE BR TO VOID. REMINDED TO USE THE INCENTIVE SPIROMETER AND TO AMBULATE IN THE HALLWAY TODAY. CHANGED BEDDINGS PER PATIENT REQUEST.
[2022-02-01 03:36] VITALS: BP 118/60
[2022-02-01] MEDS: KETOROLAC 15 MG/ML VIAL IVP SCH ×3 (05:41→20:03)
[2022-02-01] MEDS: metroNIDAZOLE 500 MG/NS PREMIX 100 ML IV SCH ×3 (05:41→20:02)
--- NOTE | 2022-02-01 05:48 | NUR ---
GAVE THE PATIENT IV MEDS, PATIENT IS STABLE, CALL LIGHT IS WITHIN THE REACH WILL CONTINUE TO MONITOR PATIENT.
--- NOTE | 2022-02-01 07:00 | NUR ---
CONDITION REMAIN STABLE. WILL ENDORSE TO AM SHIFT NURSE FOR CONTINUITY OF CARE.
--- NOTE | 2022-02-01 07:54 | NUR ---
RECEIVED REPORT FROM TYPESETTING MACHINE OPERATOR/TENDER FOR CONTINUITY OF CARE. PATIENT ALERT AWAKE ORIENTED X4. NOT IN ANY DISTRESS NOTED. DENIES PAIN AT THIS TIME. WITH GLORIA DRY AND INTACT. WITH 4X INCISION DRY AND INTACT. ENCOURAGED TO AMBULATE. NEEDS ATTENDED. WILL CONTINUE TO MONITOR.
[2022-02-01 08:00] VITALS: BP 116/72
[2022-02-01] MEDS: ACETAMINOPHEN EXTRA STRENGTH 500 MG TAB PO SCH ×3 (08:47→16:25)
[2022-02-01] MEDS: GABAPENTIN 300 MG CAP PO SCH ×3 (08:48→16:24)
[2022-02-01] MEDS: ENOXAPARIN 40 MG/0.4 ML SYR SUBQ SCH (08:51)
--- NOTE | 2022-02-01 11:17 | NUR ---
PHYSICAL THERAPY CO-SIGN The Physical Therapy Progress Notes documented by Combination Window Installer have been reviewed. Reviewed/Co-Signed by: Mitzi Boo Documentation Done by: RADHA MENENDEZ PTA Addendum: 02/01/22 at 1117 by Mitzi Boo PT Amended: Links added.
[2022-02-01 14:12] LABS: BASOPHILS % (AUTO) 0.6 % (0.0-2.0); EOSINOPHILS # (AUTO) 0.4 K/uL (0-0.4); EOSINOPHILS % (AUTO) 4.9 % (0.0-4.0); HEMOGLOBIN 7.2 g/dL (12.0-16.0); LYMPHOCYTES # (AUTO) 1.7 K/uL (2.5-16.5); LYMPHOCYTES % (AUTO) 22.9 % (20.5-51.1); MEAN CORPUSCULAR HEMOGLOBIN 19 pg (27-31); MEAN CORPUSCULAR HGB CONC 30 g/dL (33-37); MEAN CORPUSCULAR VOLUME 63.8 fL (80-94); MONOCYTES # (AUTO) 0.7 K/uL (0.8-1.0); MONOCYTES % (AUTO) 9.6 % (1.7-9.3); NEUTROPHILS # (AUTO) 4.5 K/uL (1.8-7.7); PLATELET COUNT (AUTO) 304 K/uL (140-450); RED BLOOD CELL COUNT(AUTO) 3.76 MIL/uL (4.20-5.40); RED CELL DISTRIBUTION WIDTH 21.3 % (11.6-13.7); WHITE BLOOD COUNT (AUTO) 7.3 K/uL (4.8-10.8)
--- NOTE | 2022-02-01 14:20 | NUR ---
SEEN BY DR. MCKNIGHT THE PA FOR DR. DANTE TERAN AND SHAWANDA THE GLORIA. DC PLANNING, WILL CONTINUE TO MONITOR.
[2022-02-01 14:54] LABS: ANION GAP 11.8 (8-16); CARBON DIOXIDE 23.4 mmol/L (21-32); CREATININE 0.8 mg/dL (0.6-1.3); POTASSIUM 3.2 mmol/L (3.5-5.1)
[2022-02-01 16:00] VITALS: BP 110/58
[2022-02-01] MEDS ORDERED: POTASSIUM CHLORIDE 10 MEQ TABER PO SCH (16:00)
[2022-02-01] MEDS ORDERED: SODIUM FERRIC GLUCONATE 125 MG in NACL 0.9% 100 ML IV SCH (17:00)
--- NOTE | 2022-02-01 18:31 | NUR ---
STARTED ON FERLICIT IV AND NO REACTION NOTED. EATING DINNER WITH GOOD APPETITE. DAUGHTER AT BEDSIDE. NEEDS ATTENDED. WILL ENDORSE TO THE NEXT SHIFT.
--- NOTE | 2022-02-01 19:30 | NUR ---
RECEIVED BEDSIDE REPORT FROM DAY RN. PT IS AAOX4. RESPIRATIONS ARE EQUAL AND UNLABORED ON ROOM AIR. PT ABLE TO MAKE NEEDS KNOWN AND AMBULATE. IV ON L DE JESUS 22G TKO. C/C N/V/D DX COLITIS. FAMILY IS AT BEDSIDE. POC REVIEWED WITH PT. CALL LIGHT IS WITHIN REACH. WILL CONTINUE TO MONITOR.
[2022-02-01 20:00] VITALS: BP 135/71
--- NOTE | 2022-02-01 20:10 | NUR ---
UZIEL MEDICATIONS GIVEN PER ORDERS. MED EDUCATION GIVEN. ALL NEEDS MET WILL CONTINUE TO MONITOR.
--- NOTE | 2022-02-01 22:05 | NUR ---
PATIENT OBSERVED RESTING IN BED USING PHONE. DENIES ANY COMPLAINTS AT THIS TIME. ALL NEEDS MET. CALL LIGHT IS WITHIN REACH.
--- NOTE | 2022-02-02 00:26 | NUR ---
ROUNDS MADE. PT SITTING UP IN BED USING CELLPHONE DENIES ANY COMPLAINTS. CALL LIGHT IS WITHIN REACH.
--- NOTE | 2022-02-02 02:06 | NUR ---
ROUNDS MADE. PT OBSERVED RESTING IN BED WITH EYES CLOSED. CHEST RISE AND FALL NOTED. WILL CONTINUE TO MONITOR
[2022-02-02 04:00] VITALS: BP 113/52
[2022-02-02] MEDS: metroNIDAZOLE 500 MG/NS PREMIX 100 ML IV SCH ×2 (04:12→12:47)
--- NOTE | 2022-02-02 04:12 | NUR ---
VSS. FLAGYL NOW INFUSING PER ORDERS. ALL NEEDS MET. WILL CONTINUE TO MONITOR.
--- NOTE | 2022-02-02 07:15 | NUR ---
GAVE BEDSIDE REPORT TO DAY RN. PT ENDORSED IN STABLE CONDITION.
--- NOTE | 2022-02-02 07:25 | NUR ---
RECEIVED REPORT FROM HVAC INSTALLATION TECHNICIAN NURSE. PT IS AOX4, AMBULATORY, ON ROOM AIR. IV SITE ON RIGHT HAHND, 22G, SALINE LOCKED. PT DENIES PAIN. DISCUSSED PLAN OF CARE. WILL CONTINUE TO MONITOR.
[2022-02-02] MEDS: GABAPENTIN 300 MG CAP PO SCH ×3 (09:40→17:08)
[2022-02-02] MEDS: ENOXAPARIN 40 MG/0.4 ML SYR SUBQ SCH (09:42)
[2022-02-02 10:52] LABS: BASOPHILS % (AUTO) 0.6 % (0.0-2.0); EOSINOPHILS # (AUTO) 0.3 K/uL (0-0.4); EOSINOPHILS % (AUTO) 4.5 % (0.0-4.0); HEMATOCRIT 23.5 % (36-48); LYMPHOCYTES # (AUTO) 1.7 K/uL (2.5-16.5); LYMPHOCYTES % (AUTO) 22.4 % (20.5-51.1); MEAN CORPUSCULAR HEMOGLOBIN 19 pg (27-31); MEAN CORPUSCULAR HGB CONC 30 g/dL (33-37); MEAN CORPUSCULAR VOLUME 63.9 fL (80-94); MONOCYTES # (AUTO) 0.4 K/uL (0.8-1.0); MONOCYTES % (AUTO) 5.6 % (1.7-9.3); NEUTROPHILS % (AUTO) 66.9 % (42.2-75.2); PLATELET COUNT (AUTO) 306 K/uL (140-450); RED BLOOD CELL COUNT(AUTO) 3.68 MIL/uL (4.20-5.40); RED CELL DISTRIBUTION WIDTH 21.2 % (11.6-13.7); WHITE BLOOD COUNT (AUTO) 7.5 K/uL (4.8-10.8)
[2022-02-02 10:53] LABS: POTASSIUM 3.2 mmol/L (3.5-5.1)
[2022-02-02 10:54] LABS: ANION GAP 9.4 (8-16); CARBON DIOXIDE 24.8 mmol/L (21-32); CREATININE 0.7 mg/dL (0.6-1.3)
--- NOTE | 2022-02-02 10:56 | NUR ---
[facility] PT HEMOGLOBIN IS AT 7.
--- NOTE | 2022-02-02 11:05 | NUR ---
PT HEMOGLOBIN AT 7, RELAYED TO DOCTOR GOMEZ.
--- NOTE | 2022-02-02 11:13 | NUR ---
Pt. with s/p Lap R colectomy. pt. is aax4, charge nurse and wound care nurse both check abdomen wounds, multiple surgical scar tissue with Dermabond in place, mid lower abdomen s/p hermelindo drain site dry and close, no s/s of infection. post op teaching done and explained to pt. in [place]otho by nursing staff. pt. verbalizes understanding. new dry dressing applied to mid lower abdomen,abdominal binder applied.per Pt. she is able to walk to BR and pt. is sitting in chair by bed side. all questions answered.
--- NOTE | 2022-02-02 12:00 | NUR ---
PT LYING ON HER BED, AWAKE. PT DENIES PAIN. WILL CONTINUE TO MONITOR.
[2022-02-02] MEDS ORDERED: SODIUM FERRIC GLUCONATE 125 MG in NACL 0.9% 100 ML IV SCH (13:00)
[2022-02-02] MEDS: POTASSIUM CHLORIDE 10 MEQ TABER PO PRN (13:31)
--- NOTE | 2022-02-02 13:33 | NUR ---
K DUR GIVEN TO PT, POTASSIUM IS AT 3.2.
--- NOTE | 2022-02-02 13:50 | NUR ---
PHYSICAL THERAPY CO-SIGN The Physical Therapy Progress Notes documented by Research Food Technologist have been reviewed. Reviewed/Co-Signed by: Mitzi Boo Documentation Done by: RADHA MENENDEZ PTA Addendum: 02/02/22 at 1350 by Mitzi Boo PT Amended: Links added.
[2022-02-02] MEDS ORDERED: ACET-9525 PO (14:09)
[2022-02-02] MEDS ORDERED: CEFU500T73 PO (14:09)
[2022-02-02] MEDS ORDERED: FERR324T11 PO (14:09)
[2022-02-02] MEDS ORDERED: METR-520 PO (14:09)
[2022-02-02] MEDS ORDERED: DOCU-299 PO (14:09)
[2022-02-02 16:00] VITALS: BP 119/57
--- NOTE | 2022-02-02 16:00 | NUR ---
PT IS AWAKE, WITH DAUGHTER AT BEDSIDE. PT DENIES PAIN AT THIS TIME.
[2022-02-02 16:32] VITALS: BP 127/62
--- NOTE | 2022-02-02 17:30 | NUR ---
PT WAS DISCHARGED HOME. DAUGHTER AT BEDSIDE WITH PT, REMOVED ID BANDS, IV REMOVED AND NO SIGNS OF BLEEDING OBSERVED. PT V/S ARE STABLE. ALL PT PERSONAL BELONGINGS IN POSSESSION. WHEELED PT OUTSIDE, AND HELPED HER WALK TOWARDS THE CAR. PICKED HER UP. DISCHARGE TEACHING DONE.
== END 2022-02-02 17:50 | disposition home health service (06) | DRG 231 ==
LOC: MED 23:58 → MTU 01-26 08:34 → OBSVTOIN 01-27 16:04
PROVIDERS: ADMIT Student in an Organized Health Care Education/Training Program; ATTEND Student in an Organized Health Care Education/Training Program
PROC: 0DBE8ZZ Excision of Large Intestine, Via Natural or Artificial Opening Endoscopic (ICD-10-PCS; principal; 2022-01-28)
PROC: 0DBE8ZX Excision of Large Intestine, Via Natural or Artificial Opening Endoscopic, Diagnostic (ICD-10-PCS; 2022-01-28)
PROC: 0DBP0ZZ Excision of Rectum, Open Approach (ICD-10-PCS; 2022-01-28)
DX: C18.9 Malignant neoplasm of colon, unspecified (principal); K56.609 Unspecified intestinal obstruction, unspecified as to partial versus complete obstruction; E43 Unspecified severe protein-calorie malnutrition; K62.1 Rectal polyp; K52.9 Noninfective gastroenteritis and colitis, unspecified; D50.9 Iron deficiency anemia, unspecified; E66.9 Obesity, unspecified; R59.1 Generalized enlarged lymph nodes; Z20.822 Contact with and (suspected) exposure to COVID-19; Z68.41 Body mass index [BMI] 40.0-44.9, adult
CPT/HCPCS: 45380; 45385; 96365; 96375; 99285; G0378; 36415; 71045; 74150; 80048; 80053; 81001; 83605; 85025; 85610; 85730; 86886; 86900; 86901; 86920; 87040; 87081; 88305; 88309; 88313; 88342; 93005; 94010; 97110; 97112; 97116; 97163-GP; 97530; J0696; J1100; J1170; J1200; J1650; J1885; J2001; J2250; J2270; J2405; J2543; J2704; J2710; J2765; J2916; J3010; J3490; J7030; J7060; Q0092; Q0162

== ENCOUNTER 2022-03-08 06:35 | Day surgery (SDC) | payer OTHER ==
[~2022-03-08] VITALS: Ht 162.6 cm; Wt 113.4 kg
[~2022-03-08 06:35] MED LIST: ACET-9525 PO; CEFU500T73 PO; DOCU-299 PO; FERR324T11 PO; METR-520 PO
[2022-03-08] MEDS ORDERED: BUPIVACAINE MPF 0.25% 10 ML VIAL INJ ONE (08:20)
[2022-03-08] MEDS ORDERED: ceFAZolin 1,000 MG VIAL ONE ×2 (08:20→08:58)
[2022-03-08] MEDS ORDERED: LIDOCAINE/EPI 1% 1:100000 20 ML VIAL INJ ONE (08:20)
[2022-03-08] MEDS ORDERED: PROPOFOL 200 MG/20 ML VIAL IV ONE (09:16)
[2022-03-08] MEDS ORDERED: fentaNYL citrate 0.05 MG/ML VIAL ONE (09:16)
[2022-03-08] MEDS ORDERED: DEXAMETHASONE 4 MG/ML VIAL ONE (09:16)
[2022-03-08] MEDS ORDERED: ONDANSETRON 4 MG/2 ML VIAL ONE (09:16)
[2022-03-08] MEDS ORDERED: KETOROLAC 60 MG/2 ML VIAL IM ONE (09:17)
[2022-03-08] MEDS ORDERED: MORPHINE SULFATE 2 MG/ML SYR IVP SCH (11:00)
== END 2022-03-08 13:05 | disposition home or self-care (01) ==
LOC: MDS 06:35 → MMU 06:36 → MDS 13:05
PROVIDERS: ATTEND Surgery
DX: Z45.2 Encounter for adjustment and management of vascular access device (principal); C18.0 Malignant neoplasm of cecum; Z20.822 Contact with and (suspected) exposure to COVID-19
CPT/HCPCS: 36556; 71045; 76937; 77001; 87426; 93005; C1788; J0690; J1100; J1644; J1885; J2001; J2270; J2405; J2704; J3010; J3490; Q0092

== ENCOUNTER 2023-08-30 07:22 | Day surgery (SDC) | payer OTHER ==
[2023-08-30] MEDS ORDERED: fentaNYL citrate 0.05 MG/ML VIAL ONE (08:38)
[2023-08-30] MEDS ORDERED: MIDAZOLAM 5 MG/5 ML VIAL ONE (08:38)
== END 2023-08-30 10:05 | disposition home or self-care (01) ==
LOC: MDS 07:22 → MMU 07:28 → MDS 10:05
PROVIDERS: ATTEND Internal Medicine Gastroenterology
DX: Z08 Encounter for follow-up examination after completed treatment for malignant neoplasm (principal); Z85.038 Personal history of other malignant neoplasm of large intestine; Z98.0 Intestinal bypass and anastomosis status
CPT/HCPCS: 45378; J3010; J2250